=== PATIENT | male | born 1945 | race Caucasian/White ===

== ENCOUNTER 2019-05-14 14:11 | Emergency (ER) | payer MEDICARE ==
[~2019-05-14] VITALS: Ht 190.5 cm; Wt 72.5 kg
[~2019-05-14 14:11] MED LIST: AMLO-150 PO; ASPI-496 PO; ASPI81TA45 PO; ATOR20TA PO; CARV6.2512 PO; ERGO500017 PO; HYDR1TAB13 PO; HYDR25TA6 PO; LISI-167 PO; METO25TA4 PO; METO50TA82 PO; POLY17PO5 PO; SENN-193 PO
--- NOTE | 2019-05-14 14:36 | NUR ---
PATIENT BROUGHT BACK FROM TRIAGE WITH CHIEF COMPLAINT OF "RAN OUT OF PILLS, ALL OF THEM". NO CP, SOB, N/V. PATIENT IS ALERT, ORIENTED, WARM AND DRY.
--- NOTE | 2019-05-14 15:57 | NUR ---
DISCHARGE INSTRUCTIONS REVIEWED, NO QUESTIONS AT THIS TIME
[2019-05-14 15:58] VITALS: BP 127/78
== END 2019-05-14 16:05 | disposition home or self-care (01) ==
LOC: ED 14:51
DX: I10 Essential (primary) hypertension (principal); Z76.0 Encounter for issue of repeat prescription
CPT/HCPCS: 99283

== ENCOUNTER 2019-08-07 11:07 | Emergency (ER) | payer MEDICARE ==
[~2019-08-07] VITALS: Ht 190.5 cm; Wt 76.4 kg
[~2019-08-07 11:07] MED LIST changes: +ALLO100T30 PO; +HYDR-3343 PO; +HYDR500C PO; +NICO-486 TD; +ONDA4TAB13 PO; +SIMV20TA PO
[2019-08-07] MEDS ORDERED: SODIUM CHLORIDE FLUSH 10ML SYR IVF ONE (12:30)
--- NOTE | 2019-08-07 13:04 | NUR ---
ASSUMED CARE. FLORAL MERCHANDISER AT BEDSIDE.
[2019-08-07 13:15] LABS: ALANINE AMINOTRANSFERASE 12 U/L (12-78); ALBUMIN 2.8 g/dL (3.4-5.0); ANION GAP 10 mmol/L (5-15); CALCIUM 8.4 mg/dL (8.5-10.1); CHLORIDE 104 mmol/L (98-107); CREATININE 1.97 mg/dL (0.7-1.3)
[2019-08-07 13:17] LABS: ALKALINE PHOSPHATASE 74 U/L (45-117); BILIRUBIN,TOTAL 0.3 mg/dL (0.2-1.0)
[2019-08-07 13:34] LABS: MD YES; MEAN CORPUSCULAR HEMOGLOBIN 36.7 pg (27.5-34.5); MEAN CORPUSCULAR HGB CONC 33.7 g/dL (33.2-36.2); MEAN CORPUSCULAR VOLUME 108.9 fL (81-97); MEAN PLATELET VOLUME 7.3 fL (7.4-10.4); PLATELET COUNT 614 x10^3/uL (130-400); RED BLOOD COUNT 3.47 x10^6/uL (4.38-5.82); RED CELL DISTRIBUTION WIDTH 27.6 % (9.4-14.8)
[2019-08-07 13:47] LABS: BAND#(MANUAL) 0.63 x10^3/uL; BANDS%(MANUAL) 8 % (0-7); LYMPH#(MANUAL) 1.74 x10^3/uL (1-3.4); LYMPHS% (MANUAL) 22 % (22-44); METAMYELOCYTES# (MANUAL) 0.32 x10^3/uL (0-0); METAMYELOCYTES% (MANUAL) 4 % (0-1); MONOS#(MANUAL) 0.71 x10^3/uL (0.3-2.7); MONOS% (MANUAL) 9 % (2-9); MYELOCYTES# (MANUAL) 0.16 x10^3/uL (0-0); MYELOCYTES% (MANUAL) 2 % (0-0); NRBC % (MANUAL) 1 % (0-1); REACTIVE LYMPHS # (MANUAL) 0.08 x10^3/uL (0-0); REACTIVE LYMPHS % (MANUAL) 1 % (0-0); SEG#(MANUAL) 4.27 x10^3/uL (1.8-6.8); SEGS% (MANUAL) 54 % (42-75)
[2019-08-07 13:48] LABS: ANISOCYTOSIS 1+; OVALOCYTES 1+
[2019-08-07 13:49] LABS: <PLATELET ESTIMATE> INCREASED; <PLT MORPHOLOGY> NORMAL PLT MORPH
--- NOTE | 2019-08-07 14:00 | NUR ---
UOB AND USED URINAL TO GIVE SAMPLE. PT STATES HE HAS FELT DIZZY FOR A YEAR AND THAT HE CONTRIBUTES IT TO THE SIDE EFFECTS OF THE MEDS HE TAKES FOR BP AND PVD. PT UNBALANCED ON FEET AND HELD ONTO COUNTER TO USE URINAL TO GIVE SAMPLE.
[2019-08-07 14:13] VITALS: BP 127/67
--- NOTE | 2019-08-07 14:36 | NUR ---
RESTING WHILE AWAITING DISPO
[2019-08-07 14:43] LABS: MICROSCOPIC AUTO
[2019-08-07 14:47] LABS: CULTURE INDICATED? NO
--- NOTE | 2019-08-07 16:06 | NUR ---
AFTER MD RE-EVAL, PT TO DISCHARGE WINDOW VIA W/C
== END 2019-08-07 16:07 | disposition home or self-care (01) ==
LOC: ED 13:12
DX: N28.9 Disorder of kidney and ureter, unspecified (principal); C94.6 Myelodysplastic disease, not elsewhere classified; D64.9 Anemia, unspecified; D47.3 Essential (hemorrhagic) thrombocythemia; Z51.11 Encounter for antineoplastic chemotherapy; I10 Essential (primary) hypertension
CPT/HCPCS: 36415; 74022; 80053; 81001; 85025; 93005; 99284

== ENCOUNTER 2019-10-11 06:17 | Emergency (ER) | payer MEDICARE ==
[~2019-10-11] VITALS: Ht 193 cm; Wt 80.0 kg
[2019-10-11 06:22] VITALS: BP 179/114
--- NOTE | 2019-10-11 06:38 | NUR ---
provided pt with gown, awaiting erp for eval and orders
--- NOTE | 2019-10-11 06:52 | NUR ---
report given to angelica zheng
== END 2019-10-11 07:23 | disposition home or self-care (01) ==
LOC: ED 06:54
DX: M79.672 Pain in left foot (principal); M79.671 Pain in right foot; G89.29 Other chronic pain; Z72.9 Problem related to lifestyle, unspecified; I10 Essential (primary) hypertension; I73.9 Peripheral vascular disease, unspecified
CPT/HCPCS: 99281

== ENCOUNTER 2020-08-28 11:51 | Emergency (ER) | payer MEDICARE ==
[~2020-08-28] VITALS: Ht 182.9 cm; Wt 68.0 kg
[2020-08-28 12:14] VITALS: BP 174/76
== END 2020-08-28 12:43 | disposition home or self-care (01) ==
LOC: ED 12:26
DX: I10 Essential (primary) hypertension (principal); Z76.0 Encounter for issue of repeat prescription; M10.9 Gout, unspecified; I73.9 Peripheral vascular disease, unspecified; E78.5 Hyperlipidemia, unspecified
CPT/HCPCS: 99281